=== PATIENT | female | born 2000 | race Caucasian/White ===

== ENCOUNTER 2024-12-25 05:01 | Emergency (ER) | payer OTHER ==
[~2024-12-25] VITALS: Ht 160 cm; Wt 74.5 kg
[2024-12-25 05:03] VITALS: TEMP 97.9
[2024-12-25] MEDS ORDERED: DICL75TA PO (06:47)
[2024-12-25] MEDS ORDERED: AMOX875T2 PO (06:47)
[2024-12-25] MEDS: AUGMENTIN 875 MG TAB PO ONE (06:51)
[2024-12-25] MEDS: ACETAMINOPHEN 500 MG TAB PO ONE (06:52)
[2024-12-25 06:59] VITALS: BP 121/65; O2SAT 100
== END 2024-12-25 07:19 | disposition home or self-care (01) ==
LOC: M ED 05:01
DX: K08.89 Other specified disorders of teeth and supporting structures (principal); Z79.1 Long term (current) use of non-steroidal anti-inflammatories (NSAID); Z79.899 Other long term (current) drug therapy